=== PATIENT | female | born 1960 | race African-American/Black ===

== ENCOUNTER 2017-08-20 22:00 | Inpatient (IN) | payer OTHER, MEDICAID, MEDICARE ==
[2017-08-20 22:00] VITALS: BP 112/57; PULSE 90; RESP 16; TEMP 97.6; O2SAT 100
[~2017-08-20 22:00] MED LIST: DICY1TAB26 PO; LISI-586 PO; PRIL40CA PO; SERT-132 PO
[2017-08-20] MEDS ORDERED: SODIUM CHLOR 0.9% 1000 ML INJ 1,000 ML IV SCH (22:09)
[2017-08-20] MEDS ORDERED: SODIUM CHLORIDE 0.9% FLUSH 10 ML FLUSH IV FLUSH PRN (22:15)
[2017-08-20] MEDS ORDERED: ONDANSETRON HCL 4 MG/2 ML VIAL IVP ONE (22:15)
[2017-08-20] MEDS ORDERED: FAMOTIDINE 20 MG/2 ML VIAL IV PUSH ONE (22:15)
[2017-08-20] MEDS ORDERED: MORPHINE SULFATE 4 MG/ML INJ IV PUSH ONE (22:15)
--- NOTE | 2017-08-20 22:15 | PD ---
HPI Chief Complaint: Abdominal pain Time Seen by Provider: 22:09 Travel History International Travel<30 days: No Contact w/Intl Traveler<30days: No Traveled to known affect area: No History of Present Illness HPI 57-year-old female complains abdominal pain, vomiting and diarrhea. Patient states that she has poor appetite for the past 3 days. Patient states that she started having diarrhea since yesterday. Patient states that she started having vomiting and abdominal pain since this morning. Patient stated the pain and cramping pain diffuse of the abdomen mostly mid and upper abdomen. Patient denies any pain radiation. Patient denies any dysuria or frequency. Patient denies any vaginal discharge or bleeding. Patient has history hypertension. Patient denies history of diabetes. Patient is a non-smoker. PFSH Past Medical History Anxiety: Yes Cardiovascular Problems: Yes (HTN) GERD: Yes Hypertension: Yes Musculoskeletal: Yes (CHRONIC PAIN) : 1 Para: 1 Past Surgical History Section: Yes Other Surgery: Yes (ankle) Social History Alcohol Use: No (QUIT) Tobacco Use: No Substance Use: No Allergies-Medications (Allergen,Severity, Reaction): Coded Allergies: No Known Allergies (Unverified Adverse Reaction, Unknown, 08/20/17) Reported Meds & Prescriptions Reported Meds & Active Scripts Active Reported Gabapentin 300 Mg Cap 300 Mg PO HS Lisinopril-Hctz 20-12.5 Mg Tab 1 Tab PO DAILY Sertraline (Sertraline HCl) 50 Mg Tab 50 Mg PO DAILY Review of Systems General / Constitutional: No: Fever Eyes: No: Visual changes HENT: No: Headaches Cardiovascular: No: Chest Pain or Discomfort Respiratory: No: Shortness of Breath Gastrointestinal: Positive: Vomiting, Diarrhea, Abdominal Pain Genitourinary: No: Dysuria Musculoskeletal: No: Pain Skin: No Rash Neurologic: No: Weakness Psychiatric: No: Depression Endocrine: No: Polydipsia Hematologic/Lymphatic: No: Easy Bruising Physical Exam Narrative GENERAL: Well-nourished, well-developed patient. SKIN: Focused skin assessment warm/dry. HEAD: Normocephalic. EYES: No scleral icterus. No injection or drainage. NECK: Supple, trachea midline. No JVD or lymphadenopathy. CARDIOVASCULAR: Regular rate and rhythm without murmurs, gallops, or rubs. RESPIRATORY: Breath sounds equal bilaterally. No accessory muscle use. GASTROINTESTINAL: Abdomen soft, nondistended. Patient has moderate tenderness on palpation upper and mid abdomen. No rebound tenderness. No mass. MUSCULOSKELETAL: No cyanosis, or edema. BACK: Nontender without obvious deformity. No CVA tenderness. Neurologic exam normal. Data Data Last Documented VS Vital Signs Date Time Temp Pulse Resp B/P (MAP) Pulse Ox O2 Delivery O2 Flow Rate FiO2 08/20/17 22:00 97.6 90 16 112/57 (75) 100 Orders Orders Complete Blood Count With Diff (08/20/17 22:09) Comprehensive Metabolic Panel (08/20/17 22:09) Lipase (08/20/17 22:09) Prothrombin Time / Inr (Pt) (08/20/17 22:09) Act Partial Throm Time (Ptt) (08/20/17 22:09) Urinalysis - C+S If Indicated (08/20/17 22:09) Ct Abd/Pel W Iv Contrast(Rout) (08/20/17 22:09) Iv Access Insert/Monitor (08/20/17 22:09) Ecg Monitoring (08/20/17 22:09) Oximetry (08/20/17 22:09) Morphine Inj (Morphine Inj) (08/20/17 22:15) Ondansetron Inj (Zofran Inj) (08/20/17 22:15) Sodium Chlor 0.9% 1000 Ml Inj (Ns 1000 M (08/20/17 22:09) Sodium Chloride 0.9% Flush (Ns Flush) (08/20/17 22:15) Famotidine Inj (Pepcid Inj) (08/20/17 22:15) Potassium Chlor 20 Meq Premix (Kcl 20 Me (08/20/17 23:00) Electrocardiogram (08/20/17 ) Potassium Chloride (Kcl) (08/20/17 23:00) Iohexol 350 Inj (Omnipaque 350 Inj) (08/21/17 00:39) Labs Laboratory Tests Test 08/20/17 22:15 White Blood Count 16.6 TH/MM3 Red Blood Count 4.48 MIL/MM3 Hemoglobin 14.3 GM/DL Hematocrit 42.3 % Mean Corpuscular Volume 94.4 FL Mean Corpuscular Hemoglobin 31.9 PG Mean Corpuscular Hemoglobin Concent 33.8 % Red Cell Distribution Width 14.1 % Platelet Count 352 TH/MM3 Mean Platelet Volume 8.0 FL Neutrophils (%) (Auto) 79.8 % Lymphocytes (%) (Auto) 14.4 % Monocytes (%) (Auto) 4.5 % Eosinophils (%) (Auto) 0.4 % Basophils (%) (Auto) 0.9 % Neutrophils # (Auto) 13.3 TH/MM3 Lymphocytes # (Auto) 2.4 TH/MM3 Monocytes # (Auto) 0.7 TH/MM3 Eosinophils # (Auto) 0.1 TH/MM3 Basophils # (Auto) 0.1 TH/MM3 CBC Comment DIFF FINAL Differential Comment Prothrombin Time 10.7 SEC Prothromb Time International Ratio 1.1 RATIO Activated Partial Thromboplast Time 19.2 SEC Blood Urea Nitrogen 9 MG/DL Creatinine 1.31 MG/DL Random Glucose 200 MG/DL Total Protein 7.6 GM/DL Albumin 3.6 GM/DL Calcium Level 9.6 MG/DL Alkaline Phosphatase 105 U/L Aspartate Amino Transf (AST/SGOT) 26 U/L Alanine Aminotransferase (ALT/SGPT) 15 U/L Total Bilirubin 0.7 MG/DL Sodium Level 135 MEQ/L Potassium Level 2.3 MEQ/L Chloride Level 95 MEQ/L Carbon Dioxide Level 27.3 MEQ/L Anion Gap 13 MEQ/L Estimat Glomerular Filtration Rate 51 ML/MIN Lipase 91 U/L MDM Medical Decision Making Medical Screen Exam Complete: Yes Emergency Medical Condition: Yes Interpretation(s) 22:59 PM. CBC WBC 16.6. 79 neutrophils. Potassium 2.3. Creatinine 1.31. GFR 51. Glucose 200. 1:[address] scan abdomen and pelvis shows small area of small bowel thickening possible enteritis versus ischemic bowel. Differential Diagnosis Differential diagnosis including gastritis, PUD, pancreatitis, cholecystitis, colitis, UTI, pyelonephritis, nephrolithiasis. Narrative Course 57 years old female with abdominal pain, vomiting and diarrhea. Normal saline solution 1 25 cc an hour. Pepcid 20 mg IV. Zofran 4 mg IV. Morphine 2 mg IV. KCl 40 mEq p.o. given. KCl 20 mEq IV given 2. Diagnosis Primary Impression: Enteritis Additional Impression: Hypokalemia Admitting Information Admitting Physician Requests: Admit Han Davila MD Aug 20, 2017 22:15
[2017-08-20 22:22] LABS: AUTOMATED NEUTROPHIL # 13.3 TH/MM3 (1.8-7.7); BASOPHIL # 0.1 TH/MM3 (0-0.2); BASOPHIL % 0.9 % (0.0-2.0); EOSINOPHIL # 0.1 TH/MM3 (0-0.4); EOSINOPHIL % 0.4 % (0.0-4.0); HEMATOCRIT 42.3 % (35.0-46.0); HEMOGLOBIN 14.3 GM/DL (11.6-15.3); LYMPH % 14.4 % (9.0-44.0); LYMPHOCYTE # 2.4 TH/MM3 (1.0-4.8); MEAN CELL VOLUME 94.4 FL (80.0-100.0); MEAN CORPUSCULAR HEMOGLOBIN 31.9 PG (27.0-34.0); MEAN CORPUSCULAR HGB CONC 33.8 % (32.0-36.0); MONO % 4.5 % (0.0-8.0); MONOCYTE # 0.7 TH/MM3 (0-0.9); NEUT % 79.8 % (16.0-70.0); PLATELET COUNT 352 TH/MM3 (150-450); RED BLOOD COUNT 4.48 MIL/MM3 (4.00-5.30); RED CELL DISTRIBUTION WIDTH 14.1 % (11.6-17.2); WHITE BLOOD COUNT 16.6 TH/MM3 (4.0-11.0)
[2017-08-20 22:41] LABS: ALBUMIN 3.6 GM/DL (3.4-5.0); ALT (GPT) 15 U/L (10-53); AST (GOT) 26 U/L (15-37); BICARBONATE 27.3 MEQ/L (21.0-32.0); BLOOD UREA NITROGEN 9 MG/DL (7-18); CALCIUM 9.6 MG/DL (8.5-10.1); CHLORIDE 95 MEQ/L (98-107); CREATININE 1.31 MG/DL (0.50-1.00); GLOMERULAR FILTRATION RATE 51 ML/MIN (>89); GLUCOSE,RANDOM 200 MG/DL (74-106); SODIUM (NA) 135 MEQ/L (136-145)
[2017-08-20] MEDS ORDERED: SERT-132 PO (22:41)
[2017-08-20] MEDS ORDERED: LISI20TA PO (22:41)
[2017-08-20 22:43] LABS: ALKALINE PHOSPHATASE 105 U/L (45-117); TOTAL BILIRUBIN ADULT 0.7 MG/DL (0.2-1.0); TOTAL PROTEIN 7.6 GM/DL (6.4-8.2)
[2017-08-20] MEDS ORDERED: GABA300C5 PO (22:55)
[2017-08-20] MEDS ORDERED: POTASSIUM CHLORIDE 20 MEQ CONTROLLED RELEASE TAB PO ONE (23:00)
[2017-08-20] MEDS: POTASSIUM CHLOR 20 MEQ PREMIX 100 ML IV SCH (23:42)
[2017-08-20 23:50] LABS: INTERNATIONAL NORMALIZED RATIO 1.1 RATIO; PROTHROMBIN TIME - PATIENT 10.7 SEC (9.8-11.6)
[2017-08-21] VITALS (10 sets, daily range): BP systolic 120–167; BP diastolic 67–93; PULSE 65–101; RESP 16–18; TEMP 97.6–98.8; O2SAT 97–100
[2017-08-21] MEDS ORDERED: IOHEXOL 350 MG/ML 10 ML VIAL (for RAD DIAG) IVCONTRAST ONE (00:39)
--- NOTE | 2017-08-21 00:59 | RADRPT ---
EXAM DATE/TIME: 08/21/2017 00:36 [facility] COMPARISON: No previous studies available for comparison. INDICATIONS : Upper abdominal pain. IV CONTRAST: 82 cc Omnipaque 350 (iohexol) IV ORAL CONTRAST: No oral contrast ingested. RADIATION DOSE: 22.41 CTDIvol (mGy) ; Patient body habitus MEDICAL HISTORY : Hypertension. Gastroesophageal reflux disease. SURGICAL HISTORY : section. ENCOUNTER: Initial ACUITY: 3 days PAIN SCALE: 6/10 LOCATION: abdomen TECHNIQUE: Volumetric scanning of the abdomen and pelvis was performed. Using automated exposure control and ad justment of the mA and/or kV according to patient size, radiation dose was kept as low as reasonably achievable to obtain optimal diagnostic quality images. DICOM format image data is available electro nically for review and comparison. FINDINGS: LOWER LUNGS: The visualized lower lungs are clear. LIVER: Homogeneous density without lesion. There is no dilation of the biliary tree. No calcified gallston es. SPLEEN: Normal size without lesion. PANCREAS: Within normal limits. KIDNEYS: Normal in size and shape. There is no mass, stone or hydronephrosis. ADRENAL GLANDS: Within normal limits. VASCULAR: There is no aortic aneurysm. BOWEL/MESENTERY: No dilated loops of small or large bowel. There is one loop of nondilated mid small bowel which exhi bits some mild concentric wall thickening and there is some induration of the adjacent mesentery. No evidence of free intraperitoneal fluid or gas. ABDOMINAL WALL: Within normal limits. RETROPERITONEUM: There is no lymphadenopathy. BLADDER: No wall thickening or mass. REPRODUCTIVE: Anteverted uterus. INGUINAL: There is no lymphadenopathy or hernia. MUSCULOSKELETAL: Within normal limits for patient age. CONCLUSION: 1. Solitary loop of non-distended small bowel with possible concentric wall thickening and induration of the adjacent mesentery. Differential considerations include an inflammatory, infectious, and isc hemic process. 2. No evidence of free fluid or free intraperitoneal gas. Tirso Peres MD on August 21, 2017 at 0:53 Board Certified Radiologist. This report was verified electronically.
[2017-08-21] MEDS ORDERED: GLUCAGON 1 MG/ML VIAL OTHER PRN (01:30)
[2017-08-21] MEDS ORDERED: MORPHINE SULFATE 2 MG/ML INJ IV PUSH PRN (01:30)
[2017-08-21] MEDS ORDERED: SODIUM CHLORIDE 0.9% FLUSH 10 ML FLUSH IV FLUSH PRN (01:30)
[2017-08-21] MEDS ORDERED: ACETAMINOPHEN/HYDROcodone 325 MG/5 MG TAB PO PRN (01:30)
[2017-08-21] MEDS ORDERED: MAGNESIUM HYDROXIDE SUSP 30 ML CUP PO PRN (01:30)
[2017-08-21] MEDS ORDERED: SENNOSIDES 8.6 MG TAB PO PRN (01:30)
[2017-08-21] MEDS ORDERED: BISACODYL 10 MG SUPP RECTAL PRN (01:30)
[2017-08-21] MEDS ORDERED: DEXTROSE 50% IN WATER 50 ML VIAL(D50) IV PUSH PRN (01:30)
[2017-08-21] MEDS ORDERED: LACTULOSE SYRUP 20 GM/30 ML CUP PO PRN (01:30)
[2017-08-21] MEDS: POTASSIUM CHLOR 20 MEQ PREMIX 100 ML IV SCH (01:34)
[2017-08-21] MEDS: SODIUM CHLOR 0.9% 1000 ML INJ 1,000 ML IV SCH ×3 (01:36→20:56)
[2017-08-21] MEDS ORDERED: ZOLPIDEM TARTRATE 5 MG TAB PO PRN (02:00)
--- NOTE | 2017-08-21 02:03 | HHI.HP ---
[facility] Service [facility] Primary Care Physician No Primary Care Physician Admission Diagnosis Enteritis. Hypokalemia. Renal insufficiency Diagnoses: (1) Enteritis Diagnosis: Principal (2) Hypokalemia Diagnosis: Principal (3) GINNA (acute kidney injury) Diagnosis: Principal (4) DM (diabetes mellitus) Diagnosis: Principal Travel History International Travel<30 Days: No Contact w/Intl Traveler <30 Da: No Traveled to Known Affected Are: No History of Present Illness This is a 57-year-old female with a PMH of Anxiety, HTN and GERD who presented to ER with complaints of abdominal pain in addition to nausea and vomiting x3 days. Reports decreased PO intake due to symptoms. Pain is generalized, constant, 9/10, non-radiating, associated w/ diarrhea. Denies fever or chills. On arrival, BP 112/57, HR 90, O2 sat 100% on RA, Afebrile. WBC 16.6. K+ 2.3. Creatinine 1.31, previously 0.86 on 07/29/15. BS 200. INR 1.1. CT Abdomen /Pelvis with solitary loop of nondistended small bowel possible concentric wall thickening induration, inflammatory, infectious or ischemic process. Review of Systems Except as stated in HPI: all other systems reviewed are Neg ROS: 14 point review of systems otherwise negative. Past Family Social History Past Medical History PMH: Anxiety, HTN and GERD Past Surgical History PAST SURGICAL HISTORY: , Ankle Surgery Allergies: Coded Allergies: No Known Allergies (Unverified Allergy, Unknown, 08/21/17) Family History PAST FAMILY HISTORY: Reviewed. No h/o DM or CAD Social History PAST SOCIAL HISTORY: Negative for alcohol, tobacco or drugs. Physical Exam Vital Signs Vital Signs Date Time Temp Pulse Resp B/P (MAP) Pulse Ox O2 Delivery O2 Flow Rate FiO2 08/20/17 22:00 97.6 90 16 112/57 (75) 100 Physical Exam PE: GENERAL: Middle-aged black female in no acute distress. Daughter at bedside. HEENT: PERRLA, EOMI. No scleral icterus or conjunctival pallor. No lid lag or facial droop. CARDIOVASCULAR: Regular rate and rhythm. No obvious murmurs to auscultation. No chest tenderness to palpation. RESPIRATORY: No obvious rhonchi or wheezing. Clear to auscultation. Breath sounds equal bilaterally. GASTROINTESTINAL: Abdomen soft, mild generalized tenderness to palpation, nondistended. BS normal. MUSCULOSKELETAL: Extremities without clubbing, cyanosis, or edema. No obvious deformities. NEUROLOGICAL: Awake, alert and oriented x4. No focal neurologic deficits. Moving both upper and lower extremities spontaneously. Laboratory Laboratory Tests Test 08/20/17 22:15 White Blood Count 16.6 Red Blood Count 4.48 Hemoglobin 14.3 Hematocrit 42.3 Mean Corpuscular Volume 94.4 Mean Corpuscular Hemoglobin 31.9 Mean Corpuscular Hemoglobin Concent 33.8 Red Cell Distribution Width 14.1 Platelet Count 352 Mean Platelet Volume 8.0 Neutrophils (%) (Auto) 79.8 Lymphocytes (%) (Auto) 14.4 Monocytes (%) (Auto) 4.5 Eosinophils (%) (Auto) 0.4 Basophils (%) (Auto) 0.9 Neutrophils # (Auto) 13.3 Lymphocytes # (Auto) 2.4 Monocytes # (Auto) 0.7 Eosinophils # (Auto) 0.1 Basophils # (Auto) 0.1 CBC Comment DIFF FINAL Differential Comment Prothrombin Time 10.7 Prothromb Time International Ratio 1.1 Activated Partial Thromboplast Time 19.2 Blood Urea Nitrogen 9 Creatinine 1.31 Random Glucose 200 Total Protein 7.6 Albumin 3.6 Calcium Level 9.6 Alkaline Phosphatase 105 Aspartate Amino Transf (AST/SGOT) 26 Alanine Aminotransferase (ALT/SGPT) 15 Total Bilirubin 0.7 Sodium Level 135 Potassium Level 2.3 Chloride Level 95 Carbon Dioxide Level 27.3 Anion Gap 13 Estimat Glomerular Filtration Rate 51 Lipase 91 Result Diagram: 08/20/17221408/20/172214 Caprini VTE Risk Assessment Caprini VTE Risk Assessment: No/Low Risk (score <= 1) Caprini Risk Assessment Model Point Value = 1 Point Value = 2 Point Value = 3 Point Value = 5 Age 41-60 Minor surgery BMI > 25 kg/m2 Swollen legs Varicose veins or History of unexplained or recurrent spontaneous Oral contraceptives or hormone replacement Sepsis (< 1 month) Serious lung disease, including pneumonia (< 1 month) Abnormal pulmonary function Acute myocardial infarction Congestive heart failure (< 1 month) History of inflammatory bowel disease Medical patient at bed rest Age 61-74 Arthroscopic surgery Major open surgery (> 45 min) Laparoscopic surgery (> 45 min) Malignancy Confined to bed (> 72 hours) Immobilizing plaster cast Central venous access Age >= 75 History of VTE Family history of VTE Factor V Leiden Prothrombin [id number] Lupus anticoagulant Anticardiolipin antibodies Elevated serum homocysteine Heparin-induced thrombocytopenia Other congenital or acquired thrombophilia Stroke (< 1 month) Elective arthroplasty Hip, pelvis, or leg fracture Acute spinal cord injury (< 1 month) Prophylaxis Regimen Total Risk Factor Score Risk Level Prophylaxis Regimen 0-1 Low Early ambulation 2 Moderate Order ONE of the following: *Sequential Compression Device (SCD) *Heparin 5000 units SQ BID 3-4 Higher Order ONE of the following medications: *Heparin 5000 units SQ TID *Enoxaparin/Lovenox 40 mg SQ daily (WT < 150 kg, CrCl > 30 mL/min) *Enoxaparin/Lovenox 30 mg SQ daily (WT < 150 kg, CrCl > 10-29 mL/min) *Enoxaparin/Lovenox 30 mg SQ BID (WT < 150 kg, CrCl > 30 mL/min) AND/OR *Sequential Compression Device (SCD) 5 or more Highest Order ONE of the following medications: *Heparin 5000 units SQ TID (Preferred with Epidurals) *Enoxaparin/Lovenox 40 mg SQ daily (WT < 150 kg, CrCl > 30 mL/min) *Enoxaparin/Lovenox 30 mg SQ daily (WT < 150 kg, CrCl > 10-29 mL/min) *Enoxaparin/Lovenox 30 mg SQ BID (WT < 150 kg, CrCl > 30 mL/min) AND *Sequential Compression Device (SCD) Assessment and Plan Problem List: (1) Enteritis ICD Code: K52.9 - Noninfective gastroenteritis and colitis, unspecified Status: Acute (2) Hypokalemia ICD Code: E87.6 - Hypokalemia Status: Acute (3) GINNA (acute kidney injury) ICD Code: N17.9 - Acute kidney failure, unspecified (4) DM (diabetes mellitus) ICD Code: E11.9 - Type 2 diabetes mellitus without complications Assessment and Plan A/P: 1. Enteritis: acute onset of abdominal pain, nausea/vomiting and diarrhea, CT Abd/Pelvis w/ concentric wall thickening of small bowel, infectious, inflammatory or ischemic, images reviewed by me. WBC 16, will start on empiric tx w/ Zosyn for enteritis. Check Lactic Acid to eval for possible ischemia, although doubtful as no acidosis. IVF for hydration. Diet as tolerated 2. GINNA: Creatinine 1.31, previously 0.86 on 07/29/15. Likely secondary to decreased PO intake due to above, check U/a to eval for underlying UTI. IVF for hydration. Repeat labs in am. Hold Lisinopril/HCTZ. 3. Hypokalemia: K+ 2.3, s/p replacement in ER, will recheck and replace as needed. 4. DM: BS 200, denies h/o DM, check Hgb A1c, Sliding Scale w/ Accu-Cheks. 5. DVT Prophylaxis: SCD/Teds. 6. Social work for d/c planning as needed. 7. Case discussed w/ ER physician at length, labs/records/imaging reviewed by me. Physician Certification 2 Midnight Certification Type: Admission for Inpatient Services Order for Inpatient Services The services are ordered in accordance with Medicare regulations or non- Medicare payer requirements, as applicable. In the case of services not specified as inpatient-only, they are appropriately provided as inpatient services in accordance with the 2-midnight benchmark. Estimated LOS (days): 2 days is the estimated time the patient will need to remain in the hospital, assuming treatment plan goals are met and no additional complications. Post-Hospital Plan: Home Saumya Kline MD Aug 21, 2017 02:03
[2017-08-21] MEDS: PIPERACIL-TAZO 4.5 GM PREMIX 100 ML IV SCH ×4 (02:25→20:32)
[2017-08-21] MEDS: INSULIN ASPART SUPPLEMENTAL SCALE SQ SCH ×4 (08:00→20:30)
[2017-08-21] MEDS: DOCUSATE SODIUM 50 MG/SENNA 8.6 MG TAB PO SCH ×2 (08:18→20:33)
[2017-08-21] MEDS: SODIUM CHLORIDE 0.9% FLUSH 10 ML FLUSH IV FLUSH SCH ×2 (08:18→20:32)
[2017-08-21] MEDS: SERTRALINE HCL 50 MG TAB PO SCH (08:18)
[2017-08-21] MEDS: ONDANSETRON HCL 4 MG/2 ML VIAL IVP PRN ×3 (08:23→20:09)
--- NOTE | 2017-08-21 09:07 | EKG ---
Date Performed: 08/20/2017 Time Performed: 23:38:42 PTAGE: 57 years EKG: Sinus rhythm WITH MARKED SINUS ARRHYTHMIA WITH FIRST DEGREE AV BLOCK NONSPECIFIC T-WAVE ABNORMALITY ABNORMAL ECG PREVIOUS TRACING : 07/29/2015 14.42 DOCTOR: Joel Kaiser Interpretating Date/Time 08/21/2017 09:05:12
--- NOTE | 2017-08-21 10:46 | HHI.PR ---
Subjective Remarks This is a 57-year-old female with a PMH of Anxiety, HTN and GERD who presented to ER with complaints of abdominal pain in addition to nausea and vomiting x3 days. Reports decreased PO intake due to symptoms. Pain is generalized, constant, 9/10, non-radiating, associated w/ diarrhea. Denies fever or chills. On arrival, BP 112/57, HR 90, O2 sat 100% on RA, Afebrile. WBC 16.6. K+ 2.3. Creatinine 1.31, previously 0.86 on 07/29/15. BS 200. INR 1.1. CT Abdomen /Pelvis with solitary loop of nondistended small bowel possible concentric wall thickening induration, inflammatory, infectious or ischemic process. 3-4 LESS ABDOMINAL PAIN CONTINUE ANTIBIOTICS DW RN AND PT AM LABS REPLACE LOW POTASSIUM CHECK MAGNESIUM Objective Vitals Vital Signs Date Time Temp Pulse Resp B/P (MAP) Pulse Ox O2 Delivery O2 Flow Rate FiO2 08/21/17 03:22 98.5 80 18 146/78 (100) 100 08/21/17 02:23 78 16 151/83 (105) 98 Room Air 08/20/17 22:00 97.6 90 16 112/57 (75) 100 Result Diagram: 08/20/17 2215 08/20/17 2215 Other Results Laboratory Tests Test 08/20/17 22:15 08/21/17 02:15 White Blood Count 16.6 TH/MM3 Red Blood Count 4.48 MIL/MM3 Hemoglobin 14.3 GM/DL Hematocrit 42.3 % Mean Corpuscular Volume 94.4 FL Mean Corpuscular Hemoglobin 31.9 PG Mean Corpuscular Hemoglobin Concent 33.8 % Red Cell Distribution Width 14.1 % Platelet Count 352 TH/MM3 Mean Platelet Volume 8.0 FL Neutrophils (%) (Auto) 79.8 % Lymphocytes (%) (Auto) 14.4 % Monocytes (%) (Auto) 4.5 % Eosinophils (%) (Auto) 0.4 % Basophils (%) (Auto) 0.9 % Neutrophils # (Auto) 13.3 TH/MM3 Lymphocytes # (Auto) 2.4 TH/MM3 Monocytes # (Auto) 0.7 TH/MM3 Eosinophils # (Auto) 0.1 TH/MM3 Basophils # (Auto) 0.1 TH/MM3 CBC Comment DIFF FINAL Differential Comment Prothrombin Time 10.7 SEC Prothromb Time International Ratio 1.1 RATIO Activated Partial Thromboplast Time 19.2 SEC Blood Urea Nitrogen 9 MG/DL Creatinine 1.31 MG/DL Random Glucose 200 MG/DL Total Protein 7.6 GM/DL Albumin 3.6 GM/DL Calcium Level 9.6 MG/DL Alkaline Phosphatase 105 U/L Aspartate Amino Transf (AST/SGOT) 26 U/L Alanine Aminotransferase (ALT/SGPT) 15 U/L Total Bilirubin 0.7 MG/DL Sodium Level 135 MEQ/L Potassium Level 2.3 MEQ/L Chloride Level 95 MEQ/L Carbon Dioxide Level 27.3 MEQ/L Anion Gap 13 MEQ/L Estimat Glomerular Filtration Rate 51 ML/MIN Lipase 91 U/L Lactic Acid Level 2.4 mmol/L Imaging Last Impressions Abdomen/Pelvis CT 08/20/172208 Signed Impressions: Service Date/Time: Monday, August 21, 2017 00:36 - CONCLUSION: 1. Solitary loop of non-distended small bowel with possible concentric wall thickening and induration of the adjacent mesentery. Differential considerations include an inflammatory, infectious, and ischemic process. 2. No evidence of free fluid or free intraperitoneal gas. Tirso Peres MD Objective Remarks GENERAL: AWAKE ALERT AND ORIENTED X3 IN NO ACUTE DISTRESS AT THIS TIME SKIN: Warm and dry. HEAD: Atraumatic. Normocephalic. EYES: Pupils equal and round. No scleral icterus. No injection or drainage. EOMI ENT: No nasal bleeding or discharge. Mucous membranes pink and moist. Tongue is midline NECK: Trachea midline. No JVD. Supple CARDIOVASCULAR: Regular rate and rhythm. S1-S2 no S3 or S4 RESPIRATORY: No accessory muscle use. Clear to auscultation. Breath sounds equal bilaterally. GASTROINTESTINAL: Abdomen soft, non-tender, nondistended. Hepatic and splenic margins not palpable. MUSCULOSKELETAL: Extremities without clubbing, cyanosis, or edema. No obvious deformities. NEUROLOGICAL: Awake and alert. No obvious cranial nerve deficits. Motor grossly within normal limits. Five out of 5 muscle strength in the arms and legs. Normal speech. PSYCHIATRIC: Appropriate mood and affect; insight and judgment normal. Procedures NONE Medications and IVs Current Medications Morphine Sulfate (Morphine Inj) 2 mg ONCE ONCE IV PUSH Last administered on 08/20/17at 22:54; Start 08/20/17 at 22:15; Stop 08/20/17 at 22:16; Status DC Ondansetron HCl (Zofran Inj) 4 mg ONCE ONCE IVP Last administered on 08/20/17at 22:54; Start 08/20/17 at 22:15; Stop 08/20/17 at 22:16; Status DC Sodium Chloride 1,000 ml @ 125 mls/hr Q8H IV Last administered on 08/20/17at 22: 54; Start 08/20/17 at 22:09; Stop 08/21/17 at 01:39; Status DC Sodium Chloride (NS Flush) 2 ml UNSCH PRN IV FLUSH FLUSH AFTER USING IV ACCESS ; Start 08/20/17 at 22:15; Stop 08/21/17 at 01:29; Status DC Famotidine (Pepcid Inj) 20 mg ONCE ONCE IV PUSH Last administered on 08/20/17at 22:53; Start 08/20/17 at 22:15; Stop 08/20/17 at 22:16; Status DC Potassium Chloride 100 ml @ 50 mls/hr Q2H IV Last administered on 08/21/17at 01: 34; Start 08/20/17 at 23:00; Stop 08/21/17 at 02:59; Status DC Potassium Chloride (KCl) 40 meq ONCE ONCE PO Last administered on 08/20/17at 23: 42; Start 08/20/17 at 23:00; Stop 08/20/17 at 23:01; Status DC Iohexol (Omnipaque 350 Inj) 82 ml STK-MED ONCE IVCONTRAST Last administered on 08/21/17at 00:39; Start 08/21/17 at 00:39; Stop 08/21/17 at 00:40; Status DC Piperacillin Sod/ Tazobactam Sod 100 ml @ 200 mls/hr Q6H IV Last administered on 08/21/17at 08:18; Start 08/21/17 at 02:00 Sodium Chloride 1,000 ml @ 100 mls/hr Q10H IV Last administered on 08/21/17at 01 :36; Start 08/21/17 at 01:20 Sodium Chloride (NS Flush) 2 ml UNSCH PRN IV FLUSH FLUSH AFTER USING IV ACCESS ; Start 08/21/17 at 01:30 Sodium Chloride (NS Flush) 2 ml BID IV FLUSH Last administered on 08/21/17at 08: 18; Start 08/21/17 at 09:00 Ondansetron HCl (Zofran Inj) 4 mg Q6H PRN IVP NAUSEA OR VOMITING Last administered on 08/21/17at 08:23; Start 08/21/17 at 01:30 Acetaminophen (Tylenol) 650 mg Q6H PRN PO FEVER/PAIN SCALE 1 TO 2; Start at 01:30 Acetaminophen/ Hydrocodone Bitart ([place] 5-325 Mg) 1 tab Q4H PRN PO PAIN SCALE 3 TO 5; Start 08/21/17 at 01:30 Morphine Sulfate (Morphine Inj) 2 mg Q3H PRN IV PUSH Pain 6-10; Start 08/21/17 at 01:30 Senna/Docusate Sodium (Hermelinda-Colace) 1 tab BID PO Last administered on 08/21/17at 08:18; Start 08/21/17 at 09:00 Magnesium Hydroxide (Milk Of Magnesia Liq) 30 ml Q12H PRN PO Mild constipation ; Start 08/21/17 at 01:30 Sennosides (Senokot) 17.2 mg Q12H PRN PO Moderate constipation; Start 08/21/17 at 01:30 Bisacodyl (Dulcolax Supp) 10 mg DAILY PRN RECTAL SEVERE CONSITIPATION / IF NPO ; Start 08/21/17 at 01:30 Lactulose (Lactulose Liq) 30 ml DAILY PRN PO SEVERE CONSITIPATION / IF PO; Start 08/21/17 at 01:30 Dextrose (D50w (Vial) Inj) 50 ml UNSCH PRN IV PUSH HYPOGLYCEMIA-SEE COMMENTS; Start 08/21/17 at 01:30 Glucagon (Glucagon Inj) 1 mg UNSCH PRN OTHER HYPOGLYCEMIA-SEE COMMENTS; Start 08/21/17 at 01:30 Insulin Aspart (NovoLOG SUPPLEMENTAL SCALE) 1 ACHS SLIDING SCALE SQ ; Start 08/21/17 at 08:00 Gabapentin (Neurontin) 300 mg HS PO ; Start 08/21/17 at 21:00 Sertraline HCl (Zoloft) 50 mg DAILY PO Last administered on 08/21/17at 08:18; Start 08/21/17 at 09:00 Zolpidem Tartrate (Ambien) 5 mg HS PRN PO SLEEP; Start 08/21/17 at 02:00 A/P Problem List: (1) Enteritis ICD Code: K52.9 - Noninfective gastroenteritis and colitis, unspecified Status: Acute (2) Hypokalemia ICD Code: E87.6 - Hypokalemia Status: Acute (3) GINNA (acute kidney injury) ICD Code: N17.9 - Acute kidney failure, unspecified (4) DM (diabetes mellitus) ICD Code: E11.9 - Type 2 diabetes mellitus without complications Assessment and Plan 1. Enteritis: acute onset of abdominal pain, nausea/vomiting and diarrhea, CT Abd/Pelvis w/ concentric wall thickening of small bowel, infectious, inflammatory or ischemic, images reviewed by me. WBC 16, will start on empiric tx w/ Zosyn for enteritis. Check Lactic Acid to eval for possible ischemia, although doubtful as no acidosis. IVF for hydration. Diet as tolerated 2. GINNA: Creatinine 1.31, previously 0.86 on 07/29/15. Likely secondary to decreased PO intake due to above, check U/a to eval for underlying UTI. IVF for hydration. Repeat labs in am. Hold Lisinopril/HCTZ. 3. Hypokalemia: K+ 2.3, s/p replacement in ER, will recheck and replace as needed. Suspected hypo-magnesium will replace 4. DM: BS 200, denies h/o DM, check Hgb A1c, Sliding Scale w/ Accu-Cheks. 5. DVT Prophylaxis: SCD/Teds. 6. Social work for d/c planning as needed. A.m. labs Physical therapy and Occupational Therapy Potassium and magnesium replacement Continue antibiotic Discharge Planning Pending improvement in the next 24-48 hours Sathish Moser DO Aug 21, 2017 10:46
[2017-08-21] MEDS ORDERED: POTASSIUM CHLORIDE 20 MEQ CONTROLLED RELEASE TAB PO ONE (12:00)
[2017-08-21 12:40] LABS: AUTOMATED NEUTROPHIL # 11.9 TH/MM3 (1.8-7.7); BASOPHIL % 0.3 % (0.0-2.0); EOSINOPHIL % 0.1 % (0.0-4.0); HEMATOCRIT 42.9 % (35.0-46.0); HEMOGLOBIN 14.2 GM/DL (11.6-15.3); LYMPH % 12.1 % (9.0-44.0); LYMPHOCYTE # 1.7 TH/MM3 (1.0-4.8); MEAN CELL VOLUME 95.5 FL (80.0-100.0); MEAN CORPUSCULAR HEMOGLOBIN 31.6 PG (27.0-34.0); MEAN CORPUSCULAR HGB CONC 33.1 % (32.0-36.0); MEAN PLATELET VOLUME 8.1 FL (7.0-11.0); MONO % 3.7 % (0.0-8.0); MONOCYTE # 0.5 TH/MM3 (0-0.9); NEUT % 83.8 % (16.0-70.0); PLATELET COUNT 275 TH/MM3 (150-450); RED BLOOD COUNT 4.49 MIL/MM3 (4.00-5.30); RED CELL DISTRIBUTION WIDTH 14.7 % (11.6-17.2); WHITE BLOOD COUNT 14.3 TH/MM3 (4.0-11.0)
[2017-08-21] MEDS: LACTOBACILLUS ACIDOPHILUS TAB PO SCH ×2 (12:42→17:21)
[2017-08-21] MEDS: MAGNESIUM SULFATE 1 GM PREMIX 100 ML IV SCH ×2 (12:46→13:43)
[2017-08-21 13:24] LABS: ALBUMIN 3.3 GM/DL (3.4-5.0); ALKALINE PHOSPHATASE 96 U/L (45-117); ALT (GPT) 15 U/L (10-53); AST (GOT) 30 U/L (15-37); BICARBONATE 23.8 MEQ/L (21.0-32.0); BLOOD UREA NITROGEN 10 MG/DL (7-18); CALCIUM 9.1 MG/DL (8.5-10.1); CHLORIDE 104 MEQ/L (98-107); CREATININE 1.36 MG/DL (0.50-1.00); FREE T4 1.28 NG/DL (0.76-1.46); GLOMERULAR FILTRATION RATE 49 ML/MIN (>89); GLUCOSE,RANDOM 158 MG/DL (74-106); MAGNESIUM 1.8 MG/DL (1.5-2.5); PHOSPHORUS 0.9 MG/DL (2.5-4.9); SODIUM (NA) 140 MEQ/L (136-145); TOTAL BILIRUBIN ADULT 0.9 MG/DL (0.2-1.0); TOTAL PROTEIN 7.4 GM/DL (6.4-8.2)
[2017-08-21] MEDS: GABAPENTIN 300 MG CAP PO SCH (20:33)
[2017-08-22] MEDS: PIPERACIL-TAZO 4.5 GM PREMIX 100 ML IV SCH ×4 (03:15→20:16)
[2017-08-22 03:34] VITALS: BP 95/57; PULSE 85; RESP 14; TEMP 98.1; O2SAT 96
[2017-08-22 05:59] LABS: AUTOMATED NEUTROPHIL # 9.4 TH/MM3 (1.8-7.7); BASOPHIL # 0.1 TH/MM3 (0-0.2); BASOPHIL % 0.7 % (0.0-2.0); EOSINOPHIL % 0.3 % (0.0-4.0); HEMATOCRIT 35.7 % (35.0-46.0); HEMOGLOBIN 11.9 GM/DL (11.6-15.3); MEAN CELL VOLUME 95.7 FL (80.0-100.0); MEAN CORPUSCULAR HEMOGLOBIN 32.1 PG (27.0-34.0); MEAN CORPUSCULAR HGB CONC 33.5 % (32.0-36.0); MEAN PLATELET VOLUME 7.4 FL (7.0-11.0); MONO % 4.6 % (0.0-8.0); MONOCYTE # 0.6 TH/MM3 (0-0.9); NEUT % 77.4 % (16.0-70.0); PLATELET COUNT 218 TH/MM3 (150-450); RED BLOOD COUNT 3.73 MIL/MM3 (4.00-5.30); RED CELL DISTRIBUTION WIDTH 14.6 % (11.6-17.2); WHITE BLOOD COUNT 12.1 TH/MM3 (4.0-11.0)
[2017-08-22 06:25] LABS: AST (GOT) 45 U/L (15-37); BICARBONATE 23.4 MEQ/L (21.0-32.0); BLOOD UREA NITROGEN 9 MG/DL (7-18); CALCIUM 8.4 MG/DL (8.5-10.1); CHLORIDE 107 MEQ/L (98-107); CREATININE 1.05 MG/DL (0.50-1.00); GLOMERULAR FILTRATION RATE 66 ML/MIN (>89); GLUCOSE,RANDOM 109 MG/DL (74-106); MAGNESIUM 2.4 MG/DL (1.5-2.5); SODIUM (NA) 140 MEQ/L (136-145)
[2017-08-22 06:29] LABS: ALKALINE PHOSPHATASE 87 U/L (45-117); ALT (GPT) 17 U/L (10-53); PHOSPHORUS 3.2 MG/DL (2.5-4.9); TOTAL BILIRUBIN ADULT 0.5 MG/DL (0.2-1.0); TOTAL PROTEIN 6.6 GM/DL (6.4-8.2)
[2017-08-22] MEDS: SODIUM CHLOR 0.9% 1000 ML INJ 1,000 ML IV SCH ×3 (07:20→20:16)
[2017-08-22] MEDS: ACETAMINOPHEN 325 MG TAB PO PRN (07:34)
[2017-08-22] MEDS: INSULIN ASPART SUPPLEMENTAL SCALE SQ SCH ×4 (08:00→21:00)
[2017-08-22 08:30] VITALS: BP 119/66; PULSE 78; RESP 16; TEMP 98.3; O2SAT 97
[2017-08-22] MEDS: DOCUSATE SODIUM 50 MG/SENNA 8.6 MG TAB PO SCH ×2 (09:00→20:17)
[2017-08-22] MEDS: SODIUM CHLORIDE 0.9% FLUSH 10 ML FLUSH IV FLUSH SCH ×2 (09:00→20:16)
[2017-08-22] MEDS ORDERED: POTASSIUM CHLORIDE 10 MEQ CONTROLLED RELEASE TAB PO ONE (09:45)
--- NOTE | 2017-08-22 12:35 | HHI.PR ---
Subjective Remarks Follow-up enteritis. States she is feeling better with no abdominal pain. Improving loose stools. Discussed with radiology results of abdominal CT with contrast, no definite arterial stenosis Objective Vitals Vital Signs Date Time Temp Pulse Resp B/P (MAP) Pulse Ox O2 Delivery O2 Flow Rate FiO2 08/22/17 08:34 20 08/22/17 08:30 98.3 78 16 119/66 (83) 97 08/22/17 03:34 98.1 85 14 95/57 (70) 96 08/21/17 23:38 98.1 76 17 120/67 (84) 100 08/21/17 19:26 98.8 98 17 135/93 (107) 100 08/21/17 16:05 98.2 82 18 139/76 (97) 100 08/21/17 15:50 82 08/21/17 13:29 98.2 88 18 167/78 (107) 100 I/O 08/21/17 08/21/17 08/21/17 08/22/17 08/22/17 08/22/17 07:00 15:00 23:00 07:00 15:00 23:00 Intake Total 200 ml Balance 200 ml Intake IV Total 200 ml # Voids 1 Result Diagram: 08/22/17 0541 08/22/17 0541 Imaging Last Impressions Abdomen/Pelvis CT 08/20/172208 Signed Impressions: Service Date/Time: Monday, August 21, 2017 00:36 - CONCLUSION: 1. Solitary loop of non-distended small bowel with possible concentric wall thickening and induration of the adjacent mesentery. Differential considerations include an inflammatory, infectious, and ischemic process. 2. No evidence of free fluid or free intraperitoneal gas. Tirso Peres MD Objective Remarks GENERAL: Well-developed and well-nourished in no distress SKIN: Warm and dry. CARDIOVASCULAR: Regular rate and rhythm. S1-S2 no S3 or S4 RESPIRATORY: No accessory muscle use. Clear to auscultation. Breath sounds equal bilaterally. GASTROINTESTINAL: Abdomen soft, non-tender, nondistended. MUSCULOSKELETAL: Extremities without clubbing, cyanosis, or edema. No obvious deformities. NEUROLOGICAL: Awake and alert. No obvious cranial nerve deficits. Motor grossly within normal limits. Five out of 5 muscle strength in the arms and legs. Normal speech. PSYCHIATRIC: Appropriate mood and affect; insight and judgment normal. Procedures NONE A/P Problem List: (1) Enteritis ICD Code: K52.9 - Noninfective gastroenteritis and colitis, unspecified Status: Acute (2) Hypokalemia ICD Code: E87.6 - Hypokalemia Status: Acute (3) GINNA (acute kidney injury) ICD Code: N17.9 - Acute kidney failure, unspecified (4) DM (diabetes mellitus) ICD Code: E11.9 - Type 2 diabetes mellitus without complications Assessment and Plan 1. Enteritis: acute onset of abdominal pain, nausea/vomiting and diarrhea, CT Abd/Pelvis w/ concentric wall thickening of small bowel, infectious, inflammatory or ischemic, images reviewed by me. WBC 16, will ct empiric tx w/ Zosyn for enteritis. If this is infectious, she meets criteria for severe sepsis. Improving lactic acid level on IV hydration and antibiotic. Discussed with radiology, no definite stenosis seen on contrasted abdominal CT. Negative C. difficile. Follow-up stool culture. She eats seafood frequently. 2. GINNA: Creatinine 1.31, previously 0.86 on 07/29/15. Likely secondary to decreased PO intake due to above, check U/a to eval for underlying UTI. IVF for hydration. Repeat labs in am. Hold Lisinopril/HCTZ. Improving 3. Hypokalemia: K+ 2.3, s/p replacement in ER, will recheck and replace as needed. Improving Suspected hypo-magnesium will replace 4. DM: BS 200, denies h/o DM, check Hgb A1c, Sliding Scale w/ Accu-Cheks. 5. DVT Prophylaxis: SCD/Teds. Discharge Planning Possible discharge in the morning Roland Self MD Aug 22, 2017 12:35
[2017-08-22] MEDS: LACTOBACILLUS ACIDOPHILUS TAB PO SCH ×3 (12:45→17:34)
[2017-08-22] MEDS: SERTRALINE HCL 50 MG TAB PO SCH (12:45)
[2017-08-22 13:23] VITALS: BP 123/61; PULSE 76; RESP 16; TEMP 98.6; O2SAT 98
[2017-08-22 15:42] VITALS: BP 123/65; PULSE 78; RESP 16; TEMP 98; O2SAT 98
[2017-08-22 15:53] LABS: HEMOGLOBIN A1C 6.6 % (4.3-6.0)
[2017-08-22 16:15] LABS: HEMOGLOBIN A1C 6.5 % (4.3-6.0)
[2017-08-22 19:36] VITALS: BP 115/60; PULSE 79; RESP 20; TEMP 98.7; O2SAT 100
[2017-08-22] MEDS: GABAPENTIN 300 MG CAP PO SCH (20:16)
[2017-08-22 23:22] VITALS: BP 117/68; PULSE 74; RESP 16; TEMP 98.3; O2SAT 96
[2017-08-23] MEDS: PIPERACIL-TAZO 4.5 GM PREMIX 100 ML IV SCH ×3 (02:35→15:00)
[2017-08-23 03:37] VITALS: PULSE 76
[2017-08-23 03:52] VITALS: BP 101/59; PULSE 74; RESP 16; TEMP 98.1; O2SAT 98
[2017-08-23] MEDS: ACETAMINOPHEN 325 MG TAB PO PRN (05:47)
[2017-08-23 07:38] VITALS: BP 107/64; PULSE 75; RESP 16; TEMP 98.6; O2SAT 97
[2017-08-23] MEDS: INSULIN ASPART SUPPLEMENTAL SCALE SQ SCH ×2 (08:00→12:00)
[2017-08-23] MEDS: SODIUM CHLORIDE 0.9% FLUSH 10 ML FLUSH IV FLUSH SCH (09:00)
[2017-08-23] MEDS: DOCUSATE SODIUM 50 MG/SENNA 8.6 MG TAB PO SCH (09:00)
[2017-08-23] MEDS: LACTOBACILLUS ACIDOPHILUS TAB PO SCH ×2 (09:32→15:02)
[2017-08-23] MEDS: SERTRALINE HCL 50 MG TAB PO SCH (09:32)
[2017-08-23] MEDS: SODIUM CHLOR 0.9% 1000 ML INJ 1,000 ML IV SCH (09:47)
[2017-08-23] MEDS ORDERED: CIPR-9 PO (09:53)
[2017-08-23 12:46] VITALS: BP 116/61; PULSE 89; RESP 18; TEMP 98.2; O2SAT 98
[2017-08-23 13:16] LABS: AUTOMATED NEUTROPHIL # 4.3 TH/MM3 (1.8-7.7); BASOPHIL # 0.1 TH/MM3 (0-0.2); EOSINOPHIL # 0.3 TH/MM3 (0-0.4); EOSINOPHIL % 4.2 % (0.0-4.0); HEMATOCRIT 38.1 % (35.0-46.0); HEMOGLOBIN 12.6 GM/DL (11.6-15.3); LYMPH % 34.1 % (9.0-44.0); LYMPHOCYTE # 2.6 TH/MM3 (1.0-4.8); MEAN CELL VOLUME 96.5 FL (80.0-100.0); MEAN CORPUSCULAR HEMOGLOBIN 31.9 PG (27.0-34.0); MEAN CORPUSCULAR HGB CONC 33.1 % (32.0-36.0); MEAN PLATELET VOLUME 7.8 FL (7.0-11.0); MONO % 5.7 % (0.0-8.0); MONOCYTE # 0.4 TH/MM3 (0-0.9); PLATELET COUNT 207 TH/MM3 (150-450); RED BLOOD COUNT 3.95 MIL/MM3 (4.00-5.30); RED CELL DISTRIBUTION WIDTH 14.4 % (11.6-17.2); WHITE BLOOD COUNT 7.8 TH/MM3 (4.0-11.0)
[2017-08-23 13:44] LABS: BICARBONATE 25.1 MEQ/L (21.0-32.0); CALCIUM 8.7 MG/DL (8.5-10.1); CREATININE 0.95 MG/DL (0.50-1.00); MAGNESIUM 2.1 MG/DL (1.5-2.5)
--- NOTE | 2017-08-23 13:52 | HHI.PR ---
Subjective Remarks Follow-up enteritis. Feels much better denies abdominal pain. Had 3 soft stools past 24 hours. She wants to go home discussed with nursing Objective Vitals Vital Signs Date Time Temp Pulse Resp B/P (MAP) Pulse Ox O2 Delivery O2 Flow Rate FiO2 08/23/17 12:46 98.2 89 18 116/61 (79) 98 08/23/17 07:38 98.6 75 16 107/64 (78) 97 08/23/17 03:52 98.1 74 16 101/59 (73) 98 08/23/17 03:37 76 08/22/17 23:22 98.3 74 16 117/68 (84) 96 08/22/17 19:36 98.7 79 20 115/60 (78) 100 08/22/17 15:42 98.0 78 16 123/65 (84) 98 I/O 08/22/17 08/22/17 08/22/17 08/23/17 08/23/17 08/23/17 07:00 15:00 23:00 07:00 15:00 23:00 Intake Total 900 ml 1000 ml Output Total 903 ml Balance -3 ml 1000 ml Intake Oral 900 ml 1000 ml Output Urine Total 900 ml Stool Total 3 ml # Voids 3 3 # Bowel Movements 1 Result Diagram: 08/23/17 1120 08/23/17 1120 Imaging Last Impressions Abdomen/Pelvis CT 08/20/172208 Signed Impressions: Service Date/Time: Monday, August 21, 2017 00:36 - CONCLUSION: 1. Solitary loop of non-distended small bowel with possible concentric wall thickening and induration of the adjacent mesentery. Differential considerations include an inflammatory, infectious, and ischemic process. 2. No evidence of free fluid or free intraperitoneal gas. Tirso Peres MD Objective Remarks GENERAL: Well-developed and well-nourished in no distress SKIN: Warm and dry. CARDIOVASCULAR: Regular rate and rhythm. S1-S2 no S3 or S4 RESPIRATORY: No accessory muscle use. Clear to auscultation. Breath sounds equal bilaterally. GASTROINTESTINAL: Abdomen soft, non-tender, nondistended. MUSCULOSKELETAL: Extremities without clubbing, cyanosis, or edema. No obvious deformities. NEUROLOGICAL: Awake and alert. No obvious cranial nerve deficits. Motor grossly within normal limits. Five out of 5 muscle strength in the arms and legs. Normal speech. PSYCHIATRIC: Appropriate mood and affect; insight and judgment normal. Procedures NONE A/P Problem List: (1) Enteritis ICD Code: K52.9 - Noninfective gastroenteritis and colitis, unspecified Status: Acute (2) Hypokalemia ICD Code: E87.6 - Hypokalemia Status: Acute (3) GINNA (acute kidney injury) ICD Code: N17.9 - Acute kidney failure, unspecified (4) DM (diabetes mellitus) ICD Code: E11.9 - Type 2 diabetes mellitus without complications Assessment and Plan 1. Enteritis with severe sepsis: Discussed with radiology, no definite stenosis seen on contrasted abdominal CT. Negative C. difficile. Improving on IV hydration and antibiotic 2. GINNA secondary to above. Improving 3. Hypokalemia: K+ 2.3, s/p replacement in ER, will recheck and replace as needed. Improving 4. DM: A1c 6.5, Sliding Scale w/ Accu-Cheks. 5. DVT Prophylaxis: SCD/Teds. Stable for discharge Roland Self MD Aug 23, 2017 13:52
[2017-08-23] MEDS ORDERED: POTASSIUM CHLORIDE 20 MEQ CONTROLLED RELEASE TAB PO ONE (14:00)
[2017-08-23 14:16] VITALS: BP 114/68; PULSE 80; RESP 16; TEMP 98.5; O2SAT 99
--- NOTE | 2017-08-23 16:51 | HHI.DS ---
Discharge Summary Admission Date Aug 21, 2017 at 01:26 Discharge Date: Aug 23, 2017 Admitting Diagnosis Enteritis. Hypokalemia. Renal insufficiency (1) Enteritis ICD Code: K52.9 - Noninfective gastroenteritis and colitis, unspecified Diagnosis: Principal Status: Acute (2) Hypokalemia ICD Code: E87.6 - Hypokalemia Diagnosis: Principal Status: Acute (3) GINNA (acute kidney injury) ICD Code: N17.9 - Acute kidney failure, unspecified Diagnosis: Principal (4) DM (diabetes mellitus) ICD Code: E11.9 - Type 2 diabetes mellitus without complications Diagnosis: Principal Procedures NONE Brief History - From Admission This is a 57-year-old female with a PMH of Anxiety, HTN and GERD who presented to ER with complaints of abdominal pain in addition to nausea and vomiting x3 days. Reports decreased PO intake due to symptoms. Pain is generalized, constant, 9/10, non-radiating, associated w/ diarrhea. Denies fever or chills. On arrival, BP 112/57, HR 90, O2 sat 100% on RA, Afebrile. WBC 16.6. K+ 2.3. Creatinine 1.31, previously 0.86 on 07/29/15. BS 200. INR 1.1. CT Abdomen /Pelvis with solitary loop of nondistended small bowel possible concentric wall thickening induration, inflammatory, infectious or ischemic process. CBC/BMP: 08/23/17 1120 08/23/17 1120 Significant Findings Laboratory Tests Test 08/20/17 22:15 08/21/17 02:15 08/21/17 11:22 08/22/17 05:41 White Blood Count 16.6 TH/MM3 (4.0-11.0) 14.3 TH/MM3 (4.0-11.0) 12.1 TH/MM3 (4.0-11.0) Neutrophils (%) (Auto) 79.8 % (16.0-70.0) 83.8 % (16.0-70.0) 77.4 % (16.0-70.0) Neutrophils # (Auto) 13.3 TH/MM3 (1.8-7.7) 11.9 TH/MM3 (1.8-7.7) 9.4 TH/MM3 (1.8-7.7) Activated Partial Thromboplast Time 19.2 SEC (24.3-30.1) Creatinine 1.31 MG/DL (0.50-1.00) 1.36 MG/DL (0.50-1.00) 1.05 MG/DL (0.50-1.00) Random Glucose 200 MG/DL (74-106) 158 MG/DL (74-106) 109 MG/DL (74-106) Sodium Level 135 MEQ/L (136-145) Potassium Level 2.3 MEQ/L (3.5-5.1) 2.9 MEQ/L (3.5-5.1) Chloride Level 95 MEQ/L (98-107) Estimat Glomerular Filtration Rate 51 ML/MIN (>89) 49 ML/MIN (>89) 66 ML/MIN (>89) Lactic Acid Level 2.4 mmol/L (0.4-2.0) Albumin 3.3 GM/DL (3.4-5.0) 3.0 GM/DL (3.4-5.0) Phosphorus Level 0.9 MG/DL (2.5-4.9) Hemoglobin A1c 6.6 % (4.3-6.0) 6.5 % (4.3-6.0) Red Blood Count 3.73 MIL/MM3 (4.00-5.30) Calcium Level 8.4 MG/DL (8.5-10.1) Aspartate Amino Transf (AST/SGOT) 45 U/L (15-37) Test 08/22/17 10:00 08/22/17 12:47 08/23/17 11:20 Red Blood Count 3.95 MIL/MM3 (4.00-5.30) Eosinophils (%) (Auto) 4.2 % (0.0-4.0) Blood Urea Nitrogen 6 MG/DL (7-18) Potassium Level 3.2 MEQ/L (3.5-5.1) Estimat Glomerular Filtration Rate 74 ML/MIN (>89) Imaging Last Impressions Abdomen/Pelvis CT 08/20/17 8538 Signed Impressions: Service Date/Time: Monday, August 21, 2017 00:36 - CONCLUSION: 1. Solitary loop of non-distended small bowel with possible concentric wall thickening and induration of the adjacent mesentery. Differential considerations include an inflammatory, infectious, and ischemic process. 2. No evidence of free fluid or free intraperitoneal gas. Tirso Peres MD PE at Discharge GENERAL: Well-developed and well-nourished in no distress SKIN: Warm and dry. CARDIOVASCULAR: Regular rate and rhythm. S1-S2 no S3 or S4 RESPIRATORY: No accessory muscle use. Clear to auscultation. Breath sounds equal bilaterally. GASTROINTESTINAL: Abdomen soft, non-tender, nondistended. MUSCULOSKELETAL: Extremities without clubbing, cyanosis, or edema. No obvious deformities. NEUROLOGICAL: Awake and alert. No obvious cranial nerve deficits. Motor grossly within normal limits. Five out of 5 muscle strength in the arms and legs. Normal speech. PSYCHIATRIC: Appropriate mood and affect; insight and judgment normal. Hospital Course 1. Enteritis with severe sepsis: Discussed with radiology, no definite stenosis seen on contrasted abdominal CT. Negative C. difficile. Improving on IV hydration and antibiotic 2. GINNA secondary to above. Improving 3. Hypokalemia: K+ 2.3, s/p replacement in ER, will recheck and replace as needed. Improving 4. DM: A1c 6.5, Sliding Scale w/ Accu-Cheks. 5. DVT Prophylaxis: SCD/Teds. Stable for discharge Pt Condition on Discharge: Stable Discharge Disposition: Discharge Home Discharge Time: > 30 minutes Discharge Instructions DIET: Follow Instructions for: As Tolerated, No Restrictions Activities you can perform: Regular-No Restrictions Follow up Referrals: PCP Follow-up - 1 Week with Luis Fernando Aceves MD New Medications: Ciprofloxacin (Cipro) 500 Mg Tab 500 MG PO BID for Infection for 4 Days, #8 TAB 0 Refills Continued Medications: Gabapentin (Gabapentin) 300 Mg Cap 300 MG PO HS, #30 CAP 0 Refills Lisinopril-Hctz (Lisinopril-Hctz) 20-12.5 Mg Tab 1 TAB PO DAILY for Blood Pressure Management, #30 TAB 0 Refills Sertraline (Sertraline) 50 Mg Tab 50 MG PO DAILY, #30 TAB 0 Refills Roland Self MD Aug 23, 2017 16:51
== END 2017-08-23 17:48 | disposition home or self-care (01) | DRG 872 ==
LOC: NEPE 22:00 → NEDA 08-21 01:26 → NEPGCP 08-21 02:55
PROVIDERS: ADMIT Internal Medicine; ATTEND Internal Medicine
DX: A41.9 Sepsis, unspecified organism (principal); N17.9 Acute kidney failure, unspecified; A09 Infectious gastroenteritis and colitis, unspecified; R65.20 Severe sepsis without septic shock; E87.6 Hypokalemia; E11.9 Type 2 diabetes mellitus without complications; I10 Essential (primary) hypertension; G89.29 Other chronic pain; K21.9 Gastro-esophageal reflux disease without esophagitis
CPT/HCPCS: 74177; 76937; 80048; 80053; 82948; 83036; 83605; 83690; 83735; 84100; 84439; 84443; 85025; 85610; 85730; 87493; 87506; 93005; 96361; 96365; 96366; 96375; J2270; J2405; J2543; J3475; J3480; J7030; Q9967

== ENCOUNTER 2017-09-26 19:37 | Emergency (ER) | payer OTHER, MEDICAID ==
[~2017-09-26 19:37] MED LIST changes: +CIPR-9 PO; -DICY1TAB26 PO; +GABA300C5 PO; -LISI-586 PO; +LISI20TA PO; -PRIL40CA PO
== END 2017-09-26 20:25 | disposition left against medical advice (07) ==
LOC: NED 19:37
DX: K92.9 Disease of digestive system, unspecified (principal)
CPT/HCPCS: 99281